=== PATIENT | female | born 1980 | race Caucasian/White ===

== ENCOUNTER 2016-10-09 15:58 | Emergency (ER) | payer OTHER ==
[2016-10-09 16:11] VITALS: BP 104/62; PULSE 85; RESP 16; TEMP 99.1; O2SAT 95
[2016-10-09] MEDS ORDERED: AZITHROMYCIN 250 MG TAB PO ONE (16:21)
--- NOTE | 2016-10-09 16:24 | UCPHY ---
H & P Patient Type: New Chief Complaint Nursing Narrative: sore throat, aches and headache since yesterday Time Seen by Provider: 10/09/16 16:16 HPI/ROS: CHIEF COMPLAINT: Sore throat HISTORY OF PRESENT ILLNESS: The patient is a 36-year-old female who comes to the Urgent Care complaining of a sore throat that began yesterday. She states that several of her children and her have all been diagnosed with strep throat this month. Several happened strep swab positive. She has not had a fever. She did have mild sinus congestion this resolved yesterday. Headache and body aches also resolved with ibuprofen. No nausea vomiting. No urinary symptoms. REVIEW OF SYSTEMS: Constitutional: myalgias denies: chills, fever, recent illness, recent injury EENTM: See HPI Respiratory: denies: cough, shortness of breath Cardiac: denies: chest pain, irregular heart rate, lightheadedness, palpitations Gastrointestinal/Abdominal: denies: abdominal pain, diarrhea, nausea, vomiting, blood streaked stools Genitourinary: denies: dysuria, frequency, hematuria, pain Musculoskeletal: denies: joint pain, muscle pain Skin: denies: lesions, rash, jaundice, bruising Neurological: denies: headache, numbness, paresthesia, tingling, dizziness, weakness Hematologic/Lymphatic: denies: blood clots, easy bleeding, easy bruising Immunologic/allergic: denies: HIV/AIDS, transplant EXAM: GENERAL: Well-appearing, well-nourished and in no acute distress. HEAD: Atraumatic, normocephalic. EYES: Pupils equal round and reactive to light, extraocular movements intact, sclera anicteric, conjunctiva are normal. ENT: TMs normal, nares patent, oropharynx erythematous with exudate. Moist mucous membranes. NECK: Normal range of motion, supple without lymphadenopathy or JVD. LUNGS: Breath sounds clear to auscultation bilaterally and equal. No wheezes rales or rhonchi. HEART: Regular rate and rhythm without murmurs, rubs or gallops. ABDOMEN: Soft, nontender, normoactive bowel sounds. No guarding, no rebound. No masses appreciated. BACK: No CVA tenderness, no spinal tenderness, step-offs or deformities EXTREMITIES: Normal range of motion, no pitting or edema. No clubbing or cyanosis. NEUROLOGICAL: Cranial nerves II through XII grossly intact. Normal speech, normal gait. 5/5 strength, normal movement in all extremities, normal sensation PSYCH: Normal mood, normal affect. SKIN: Warm, dry, normal turgor, no visible rashes or lesions. Source: Patient - Personal History LMP (Females 10-55): Over 28 Days Ago Tetanus Vaccine Date: 07/2011 - Medical/Surgical History Hx Asthma: No Hx Chronic Respiratory Disease: No Hx Diabetes: No Hx Cardiac Disease: No Hx Renal Disease: No Hx Cirrhosis: No Hx Alcoholism: No Other PMH: denies - Family History Significant Family History: Hypertension - Social History Smoking Status: Never smoked Alcohol Use: Sober Drug Use: None Constitutional: Initial Vital Signs Temperature (C) 37.3 C 10/09/16 16:08 Heart Rate 85 10/09/16 16:08 Respiratory Rate 16 10/09/16 16:08 Blood Pressure 104/62 10/09/16 16:08 O2 Sat (%) 95 10/09/16 16:08 O2 Delivery Mode Room Air Allergies/Adverse Reactions: Penicillins Allergy (Intermediate, Verified 07/21/14 09:26) Rash Sulfa (Sulfonamide Antibiotics) Allergy (Intermediate, Verified 07/21/14 09:26) Rash Home Medications: Medication Instructions Recorded Zoloft 25mg (RX) 25 mg PO DAILY 07/21/14 AZITHROMYCIN [Z-PACK] 250 mg PO DAILY #4 tab 10/09/16 Medical Decision Making ED Course/Re-evaluation: The patient has symptoms and history consistent with strep throat as well as multiple exposures. I will start her on a Z-Randy. She is agreeable with this plan and declines further workup or testing. She declines steroids. Differential Diagnosis: Partial list of the Differential diagnosis considered include but were not limited to; strep throat, pharyngitis, upper respiratory tract infection, and although unlikely based on the history and physical exam, I also considered meningitis, bacteremia, sinusitis. I discussed these differential diagnoses and the plan with the patient as well as the usual and expected course. The patient understands that the diagnosis is provisional and that in medicine we are not always correct and that further workup is often warranted. Usual and customary warnings were given. All of the patient's questions were answered. The patient was instructed to return to the emergency department should the symptoms at all worsen or return, otherwise to followup with the physician as we discussed. - Data Points Laboratory Results: 10/09/16 16:10 Group A Strep Screen Pending Departure - Departure Disposition: Home, Routine, Self-Care Clinical Impression: Strep throat Condition: Fair Instructions: Strep Throat (ED) Prescriptions: AZITHROMYCIN [Z-PACK] 250 mg PO DAILY #4 tab - PQRS PQRS Measurement: Not applicable
== END 2016-10-09 16:30 | disposition home or self-care (01) ==
LOC: CED 15:58
DX: J02.0 Streptococcal pharyngitis (principal); Z88.0 Allergy status to penicillin; Z88.2 Allergy status to sulfonamides
CPT/HCPCS: 87880-PO; 99204-PO; G0463-PO

== ENCOUNTER → 2017-08-14 | Outpatient (CLI) | payer OTHER | LOC: CIMAGING 08:56 | PROVIDERS: ATTEND Podiatrist | DX: M77.9 Enthesopathy, unspecified (principal); S92.212D Displaced fracture of cuboid bone of left foot, subsequent encounter for fracture with routine healing | CPT/HCPCS: 73610-PO ==